=== PATIENT | male | born 1980 | race Caucasian/White ===

== ENCOUNTER 2022-04-16 16:16 | Outpatient (CLI) | payer MEDICARE, MEDICAID | END 2022-04-16 16:17 | disposition home or self-care (01) | LOC: MADLAB 16:16 | DX: G40.909 Epilepsy, unspecified, not intractable, without status epilepticus (principal) | CPT/HCPCS: 80177 ==

== ENCOUNTER 2022-07-15 16:10 | Outpatient (CLI) | payer MEDICARE, MEDICAID | END 2022-07-15 16:11 | disposition home or self-care (01) | LOC: MADLAB 16:10 | DX: G40.419 Other generalized epilepsy and epileptic syndromes, intractable, without status epilepticus (principal) | CPT/HCPCS: 80177 ==

== ENCOUNTER 2022-10-04 07:09 | Emergency (ER) | payer MEDICARE, OTHER ==
[2022-10-04] MEDS ORDERED: levETIRAcetam 500 MG TAB ONE (08:09)
[2022-10-04 08:14] LABS: ALT (SGPT) 33 U/L (8-55); AST (SGOT) 26 U/L (5-34); Albumin 3.6 g/dL (3.5-5.0); Alkaline Phosphatase 75 U/L (40-110); Anion Gap 13 mmol/L (10-20); BUN (Urea Nitrogen) 9 mg/dL (8.9-20.6); Bilirubin, Total 0.3 mg/dL (0.2-1.2); Calc. Creatinine Clearance 0 mL/min (70-130); Carbon Dioxide 27 mmol/L (22-29); Chloride 108 mmol/L (98-107); Estimated GFR 91; Globulin 2.5 g/dL (2.4-3.5); Glucose 100 mg/dL (70-105); Potassium 4.2 mmol/L (3.5-5.1); Protein, Total 6.1 g/dL (6.0-8.3); Sodium 144 mmol/L (136-145)
[2022-10-04 08:17] LABS: Anisocytosis SLIGHT = 6-15 cells (100X) (0-5/hpf); Band 5 % (5-11); Hemoglobin 15.9 g/dL (14.0-18.0); Lymphocytes 35 % (21-51); MDiff Complete? YES; Macrocytosis SLIGHT = 6-15 cells (100X) (0-5/hpf); Mean Corpuscular HGB CONC 35.1 g/dL (32.0-36.0); Mean Corpuscular Hemoglobin 35.2 pg (27.0-31.0); Mean Corpuscular Volume 100.3 fl (78.0-98.0); Monocytes 8 % (0-10); Neutrophil 41 % (42-75); Nucleated RBC 1 % (0); Platelet Count 245 10x3/uL (130-400); Platelet Morphology Comment Appears Adequate; RBC Distribution Width 11.5 % (11.5-14.5); Reactive Lymphocytes 10 % (0-10); Red Blood Cell (RBC) Count 4.52 mill/uL (4.70-6.10); White Blood Cell (WBC) Count 3.1 10x3/uL (4.8-10.8)
[2022-10-04] MEDS ORDERED: Lorazepam 2 MG/ML VIAL ONE (08:53)
[2022-10-04 10:20] LABS: Magnesium 1.9 mg/dL (1.6-2.6)
[2022-10-04 10:31] LABS: Bilirubin Negative (Negative); Blood, Urine Negative (Negative); Clarity Clear (Clear); Glucose, Urine (Dipstick) Negative (Negative); Ketone, Urine Negative (Negative); Leukocyte Negative (Negative); Nitrite Negative (Negative); Protein, Urine (Dipstick) Negative (Neg-Trace); Urobilinogen 0.2 mg/dL (Less than 2)
== END 2022-10-04 11:43 ==
LOC: MADERS 07:09
DX: G40.909 Epilepsy, unspecified, not intractable, without status epilepticus (principal); Z79.899 Other long term (current) drug therapy
CPT/HCPCS: 36416; 51701; 70450; 80053; 81003; 83735; 85025; 93005; 96374; 36415-59; J2060

== ENCOUNTER 2022-11-15 23:19 | Emergency (ER) | payer MEDICARE, MEDICAID, OTHER ==
[2022-11-15] MEDS ORDERED: Ketorolac Tromethamine 30 MG/ML VIAL ONE (23:30)
[2022-11-15] MEDS ORDERED: Sodium Chloride 0.9% 1,000 ML ONE (23:53)
[2022-11-15] MEDS ORDERED: Sodium Chloride 0.9% 0 ML ONE (23:53)
[2022-11-15] MEDS ORDERED: cefTRIAXone\\ROCEPHIN 1 GM VIAL ONE (23:58)
[2022-11-16 00:18] LABS: Band 38 % (5-11); Eosinophils 1 % (0-10); Hemoglobin 16.3 g/dL (14.0-18.0); Lymphocytes 10 % (21-51); MDiff Complete? YES; Mean Corpuscular HGB CONC 35.3 g/dL (32.0-36.0); Mean Corpuscular Hemoglobin 34.1 pg (27.0-31.0); Mean Corpuscular Volume 96.6 fl (78.0-98.0); Mean Platelet Volume 6.8 fL (7.4-10.4); Monocytes 4 % (0-10); Neutrophil 44 % (42-75); Platelet Count 258 10x3/uL (130-400); RBC Distribution Width 10.9 % (11.5-14.5); RBC Morphology Normal; Reactive Lymphocytes 2 % (0-10); Red Blood Cell (RBC) Count 4.79 mill/uL (4.70-6.10)
[2022-11-16] MEDS ORDERED: Sodium Chloride 0.9% 100 ML ONE (00:20)
[2022-11-16] MEDS ORDERED: Sodium Chloride 0.9% 250 ML 250 ML ONE ×2 (00:20→02:24)
[2022-11-16] MEDS ORDERED: Vancomycin 1 GM VIAL ONE (00:20)
[2022-11-16 00:21] LABS: White Blood Cell (WBC) Count 4.1 10x3/uL (4.8-10.8)
[2022-11-16] MEDS ORDERED: Sodium Chloride 0.9% 50 ML ONE (00:22)
[2022-11-16 00:24] LABS: ALT (SGPT) 22 U/L (8-55); AST (SGOT) 25 U/L (5-34); Albumin 3.6 g/dL (3.5-5.0); Alkaline Phosphatase 68 U/L (40-110); Anion Gap 11 mmol/L (10-20); BUN (Urea Nitrogen) 11 mg/dL (8.9-20.6); Bilirubin, Total 0.8 mg/dL (0.2-1.2); Calc. Creatinine Clearance 0 mL/min (70-130); Carbon Dioxide 23 mmol/L (22-29); Chloride 110 mmol/L (98-107); Estimated GFR 98; Globulin 2.3 g/dL (2.4-3.5); Glucose 131 mg/dL (70-105); Potassium 3.3 mmol/L (3.5-5.1); Protein, Total 5.9 g/dL (6.0-8.3); Sodium 141 mmol/L (136-145)
[2022-11-16 00:27] LABS: Bilirubin Negative (Negative); Blood, Urine Negative (Negative); Clarity Clear (Clear); Glucose, Urine (Dipstick) Negative (Negative); Ketone, Urine Negative (Negative); Leukocyte Negative (Negative); Nitrite Negative (Negative); Protein, Urine (Dipstick) Negative (Neg-Trace); Urobilinogen 0.2 mg/dL (Less than 2); pH, Urine 5.5 (5.0-9.0)
[2022-11-16 01:03] LABS: SARS-CoV-2 NAA Rapid Test Not Detected (NotDetected)
[2022-11-16] MEDS ORDERED: Azithromycin 500 MG VIAL ONE (02:23)
== END 2022-11-16 04:08 | disposition short-term general hospital (02) ==
LOC: MADERS 23:19
DX: A41.9 Sepsis, unspecified organism (principal); J18.9 Pneumonia, unspecified organism; R53.81 Other malaise; G40.909 Epilepsy, unspecified, not intractable, without status epilepticus; G30.9 Alzheimer's disease, unspecified; F02.80 Dementia in other diseases classified elsewhere, unspecified severity, without behavioral disturbance, psychotic disturbance, mood disturbance, and anxiety; I69.959 Hemiplegia and hemiparesis following unspecified cerebrovascular disease affecting unspecified side; Z20.822 Contact with and (suspected) exposure to COVID-19; Z79.899 Other long term (current) drug therapy
CPT/HCPCS: 51702; 71045; 80053; 81003; 83605; 85025; 87040; 87086; 96365; 96367; 96375; J0456; J0696; J1885; J3370; J3490; J7030; J7050